=== PATIENT | male | born 1980 | race Caucasian/White ===

== ENCOUNTER 2018-11-17 18:26 | Emergency (ER) | payer MEDICAID ==
[~2018-11-17] VITALS: Ht 177.8 cm; Wt 110.0 kg
[2018-11-17 18:59] LABS: EOS # 0.1 (0.04-0.40); EOS % 0.4 % (0.0-4.0); HEMOGLOBIN 15.9 g/dL (13.5-18.0); LYMPH# 2.4 (1.50-4.00); MEAN CELL VOLUME 89 fl (78-100); MEAN CORPUSCULAR HEMOGLOBIN 30 pg (27-31); MEAN CORPUSCULAR HGB CONC 34 g/dL (33-37); MEAN PLATELET VOLUME 9.3 fl (7.4-10.4); NEU # 7.6 (1.40-6.50); PLATELET COUNT 241 K/mm3 (130-400); RED BLOOD COUNT 5.31 M/mm3 (4.20-5.60); RED CELL DISTRIBUTION WIDTH 13.1 % (11.5-14.5); WHITE BLOOD COUNT 11.1 K/mm3 (4.8-10.8)
[2018-11-17 19:05] LABS: ALBUMIN 4.8 g/dL (3.5-5.0)
[2018-11-17 19:07] LABS: CALCIUM 10.4 mg/dL (8.3-10.5)
[2018-11-17 19:08] LABS: TOTAL PROTEIN 8.5 g/dL (6.4-8.3)
[2018-11-17 19:10] LABS: TOTAL BILIRUBIN 1.2 mg/dL (0.2-1.2)
[2018-11-17] MEDS ORDERED: BYSTOLIC10 MG PO (19:43)
[2018-11-17] MEDS ORDERED: ATIVAN 2MG2 MG PO (19:44)
[2018-11-17] MEDS ORDERED: AMBIEN10 MG PO (19:44)
[2018-11-17] MEDS ORDERED: KETOCONAZOLE 1120 ML TP (19:45)
[2018-11-17] MEDS ORDERED: FLONASE ALLERG9.9 ML NS (19:45)
[2018-11-17] MEDS ORDERED: TEMOVATE15 GM TP (19:45)
[2018-11-17] MEDS ORDERED: AUGMENTIN 875-1 EAC1 PO (20:48)
[2018-11-17 21:40] VITALS: BP 130/71
== END 2018-11-17 21:40 | disposition home or self-care (01) ==
LOC: ED 18:26
PROVIDERS: Nurse Practitioner Family
DX: J03.90 Acute tonsillitis, unspecified (principal); R00.2 Palpitations; F41.9 Anxiety disorder, unspecified; I10 Essential (primary) hypertension
CPT/HCPCS: J1885; Q9967

== ENCOUNTER 2019-02-12 15:00 | Outpatient (RCR) | payer MEDICAID ==
[~2019-02-12 15:00] MED LIST: AMBIEN10 MG PO; ATIVAN 2MG2 MG PO; AUGMENTIN 875-1 EAC1 PO; BYSTOLIC10 MG PO; FLONASE ALLERG9.9 ML NS; KETOCONAZOLE 1120 ML TP; TEMOVATE15 GM TP
== END 2019-02-12 15:30 | disposition still patient (30) ==
LOC: OT 15:00
DX: M77.9 Enthesopathy, unspecified (principal)

== ENCOUNTER → 2019-03-10 | Outpatient (CLI) | payer MEDICAID | LOC: PT 03-04 15:00 → EDSTATUS 15:30 → PT 15:39 | DX: M25.562 Pain in left knee (principal); G89.29 Other chronic pain ==